=== PATIENT | male | born 1945 | race Caucasian/White ===

== ENCOUNTER 2017-02-16 09:08 | Inpatient (IN) | payer MEDICARE, OTHER ==
[~2017-02-16] VITALS: Ht 177.8 cm; Wt 86.6 kg
[~2017-02-16 09:08] MED LIST: ACTOS 45 MG45 M1 PO; ASPIR 8181 MG PO; CENTRUM SILVER1 EAC4 PO; CRESTOR10 MG PO; FISH OIL 1,001000 M2 PO; GLIPIZIDE ER5 MG PO; METFORMIN HCL500 MG PO; METOPROLOL SUCC50 MG PO; NEURONTIN600 MG PO; PLAVIX 75 MG TA75 M1 PO
[2017-02-16 09:16] VITALS: BP 158/60
[2017-02-16] MEDS ORDERED: LOTREL 5-20 MG1 EACH PO (09:20)
[2017-02-16 09:38] LABS: ABSOLUTE BASOPHILS 0.1 thou/uL (0.0-0.2); ABSOLUTE EOSINOPHILS 0.2 thou/uL (0.0-0.7); ABSOLUTE LYMPHOCYTES 1.7 thou/uL (0.8-5.3); ABSOLUTE MONOCYTES 0.6 thou/uL (0.0-1.2); ABSOLUTE NEUTROPHILS 6.9 thou/uL (1.6-8.1); BASOPHILS 0.9 %; EOSINOPHILS 1.9 %; HEMATOCRIT 32.2 % (42.0-52.0); HEMOGLOBIN 10.7 gm/dL (14.0-18.0); LYMPHOCYTES 17.7 %; MCH 31.3 pg (26.0-34.0); MCHC 33.3 g/dL (28.0-37.0); MCV 94.1 fL (80.0-100.0); MONOCYTES 6.9 %; MPV 8.7 fl. (7.2-11.1); NUCLEATED RBCS 0 /100WBC; PLATELET COUNT* 223 thou/uL (150-400); POLYS 72.6 %; RBC 3.42 mil/uL (4.50-6.00); RDW-CV 16.9 % (10.5-14.5); WBC 9.4 thou/uL (4.0-11.0)
[2017-02-16 09:46] LABS: ANION GAP 10 mmol/L (7-16); BUN 29 mg/dL (7-18); CALCIUM 9.2 mg/dL (8.5-10.1); CHLORIDE 103 mmol/L (98-107); CO2 25 mmol/L (21-32); CREATININE 1.2 mg/dL (0.6-1.3); GLUCOSE 222 mg/dL (70-99); POTASSIUM 4.7 mmol/L (3.5-5.1); SODIUM 138 mmol/L (136-145)
[2017-02-16 09:57] LABS: ALBUMIN 3.5 g/dL (3.4-5.0); ALKALINE PHOSPHATASE 60 U/L (46-116); LIPASE 244 U/L (73-393); SGOT 20 U/L (15-37); SGPT 20 U/L (30-65); TOTAL BILIRUBIN 0.6 mg/dL (<0.1-1.0); TOTAL PROTEIN 6.8 g/dL (6.4-8.2); TROPONIN-I LEVEL <0.06 ng/mL (<0.06)
[2017-02-16 10:55] VITALS: BP 142/70
[2017-02-16 11:15] VITALS: BP 133/65
--- NOTE | 2017-02-16 13:00 | NUR ---
PT ARRIVED TO ROOM 219 AT APPROX 1100. PT A/O X4, HAS CAM BOOT ON RIGHT FOOT, PT REPORTS BREAKING RIGHT FOOT SEVERAL MONTHS AGO. PT STATES HE HAS HAD BLOODY STOOLS FOR A FEW DAYS. PT TO GET TAGGED RBC SCAN TODAY. PTS VSS, SR ON THE MONITOR. FALL PRECAUIONS IN PLACE. WILL CONTINUE WITH PLAN OF CARE.
[2017-02-16 15:06] LABS: HEMATOCRIT 26.4 % (42.0-52.0); HEMOGLOBIN 9.1 gm/dL (14.0-18.0)
--- NOTE | 2017-02-16 15:48 | EKG ---
[place] [address] ELECTROCARDIOGRAM REPORT Name: KATE KAPLAN Room: [address] ADM IN M.R.#: [id number] Admission: 02/16/17 Attend Phys: Troy Ruiz MD Discharge: Date of : 45 Report #: [id number] THIS REPORT FOR: //name// [facility] ED Test Date: 2017-02-16 Test Time: 09:27:37 Pat Name: KATE LONGROSAURA Department: Room: [facility] Gender: M Corporate Legal Intern: Sheree LINARES : 1945 Requested By: Sundar Ashby Order Number: [id number] MD: Fab De Jesus Measurements Intervals [place] Rate: 90 P: 54 [place]: 135 QRS: 64 QRSD: 92 T: -24 QT: 368 QTc: 451 Interpretive Statements Sinus rhythm Borderline T abnormalities, inferior leads Baseline wander in lead(s) V4,V5 Compared to ECG 06/18/2016 02:34:02 Atrial premature complex(es) no longer present T-wave abnormality still present Electronically Signed On 02-16-2017 15:48:45 [employer] by Fab De Jesus [email or web address] <ELECTRONICALLY SIGNED> By: Fab De Jesus MD, [facility] 02/16/17 1548 0927 0927 Fab De Jesus MD, [facility] /EPI
[2017-02-16 16:00] VITALS: BP 129/46
--- NOTE | 2017-02-16 19:48 | NUR ---
PT UPSET TODAY THAT HE HAD TO BE NPO FOR TESTS. DR LEIGH NOTIFIED, TESTS WERE NEGATIVE, OK WITH PT EATING TONIGHT AND WILL NOT BE IN TO SEE PT UNTIL TOMORROW. HE WANTS PT TO BE NPO AFTER MIDNIGHT FOR MORE TESTING IN THE AM. PT GIVEN THIS INFORMATION. PT STATES HE DOES NOT WANT TO STAY TONIGHT. PT DOES NOT WANT ANY MORE TESTING IF THE SCANS FROM TODAY ARE NEGATIVE. DR MIKE NOTIFIED THAT THE PT WANTS TO LEAVE AMA. PT SIGNED AMA FORM. IV AND HEART MONITOR REMOVED. PT LEFT UNIT WITH ALL BELONGINGS AT APPROX 1900
--- NOTE | 2017-02-22 16:28 | CON ---
[address] [address] CONSULTATION Name: KATE KAPLAN Room: [address] IN M.R.#: [id number] Admission: 02/16/17 Attend Phys: Troy Ruiz MD Discharge: 02/16/17 Date of : 45 Report #: [id number] THIS REPORT FOR: //name// CC: Ranulfo Franks MD DICTATED BY: Mayi Jimenez [facility] DATE OF SERVICE: 02/16/2017 Please note at the time of this dictation, the patient was seen and physically examined by myself. REASON FOR CONSULTATION: GI bleed. HISTORY OF PRESENT ILLNESS: This is a 71-year-old male who presented to the Emergency Room after calling our office and being sent by Dr. Butler for further evaluation. The patient states on Tuesday, he started noticing that he had some blood in his stool and it progressively turned into bright red blood in his stool, which he had for several days and seemed to be very continuous. He did have a little bit of discomfort in the right or the left lower quadrant area and he felt a little dizzy. He denies any fever, chills or any nausea or vomiting and his appetite had remained good. Back in June of this year, he did have a diverticular bleed in which he had a coil embolization done by IR at the splenic flexure. The patient states that he recently had surgery last fall for fractured right foot. He had been taking pain medications, particularly opioids which he had become very constipated with. He states they were returning back to normal, but were not completely back to the way that they were before. ALLERGIES: No known drug allergies. MEDICATIONS FROM HOME: Glucophage, Plavix, Crestor, Actos, metoprolol, glipizide, fish oil, aspirin, Neurontin, Centrum and Lotrel. PAST MEDICAL HISTORY: History of GI bleed, diabetes and coronary artery disease with some neuropathy and hypercholesterolemia. PAST SURGICAL HISTORY: Negative. FAMILY HISTORY: Noncontributory. SOCIAL HISTORY: Denies any alcohol, tobacco or illegal drug use. REVIEW OF SYSTEMS: Twelve-point review [place] [address] CONSULTATION Name: KATE KAPLAN Room: [address]#: [id number] Admission: 02/16/17 Attend Phys: Troy Ruiz MD Discharge: 02/16/17 Date of : 45 Report #: [id number] except what is mentioned in the HPI. PHYSICAL EXAMINATION: VITAL SIGNS: Temperature 36.4, pulse 83, respirations 12, blood pressure 142/70. HEART: Regular rate and rhythm. LUNGS: Clear. ABDOMEN: Soft, positive bowel sounds in all 4 quadrants with some very mild left lower quadrant tenderness noted to palpation. LABORATORY DATA: Hemoglobin noted in June was 14 prior to his previous GI bleed. On admission, he was 10.7, hematocrit 32.2, white count is 9.4, platelets 223. Sodium 138, potassium 4.7, chloride 103, CO2 25, BUN is 29, creatinine is 1.2 and GFR is 60 and glucose is 222. Tagged RBC scan is still pending. IMPRESSION: 1. Gastrointestinal bleed. 2. Left lower quadrant pain. 3. Constipation secondary to pain medications due to his recent surgery on his foot. 4. Anticoagulant therapy. PLAN: 1. Tagged RBC scan today. 2. MiraLax daily. 3. Repeat his CBC and CMP in the a.m. 4. Clear liquid diet if his tagged RBC scan comes back negative later today. Thank you for allowing us to participate in this patient's care. Please do not hesitate to call with any questions in regard to this consult. <ELECTRONICALLY SIGNED> By: Tiffanie Weber MD 02/22/17 1628 1252 [id number] Weber MD /nt
== END 2017-02-16 19:10 | disposition left against medical advice (07) | DRG 378 ==
LOC: M.ERS 09:08 → M.2W 10:39 → M.TBA-ER 10:39 → M.2W 11:05
PROVIDERS: Emergency Medicine Emergency Medical Services; ADMIT Internal Medicine
DX: K57.91 Diverticulosis of intestine, part unspecified, without perforation or abscess with bleeding (principal); D62 Acute posthemorrhagic anemia; E11.40 Type 2 diabetes mellitus with diabetic neuropathy, unspecified; E78.00 Pure hypercholesterolemia, unspecified; K59.03 Drug induced constipation; T40.2X5A Adverse effect of other opioids, initial encounter; I25.10 Atherosclerotic heart disease of native coronary artery without angina pectoris; Z79.899 Other long term (current) drug therapy; Z79.4 Long term (current) use of insulin; Z79.82 Long term (current) use of aspirin; Z79.02 Long term (current) use of antithrombotics/antiplatelets; Z79.01 Long term (current) use of anticoagulants; Z95.5 Presence of coronary angioplasty implant and graft; Z82.49 Family history of ischemic heart disease and other diseases of the circulatory system; Y92.89 Other specified places as the place of occurrence of the external cause